=== PATIENT | female | born 1930 | race Caucasian/White ===

== ENCOUNTER → 2017-06-08 | Outpatient (CLI) | payer MEDICARE, OTHER ==
[~2017-06-08] MED LIST: ABAC300; ALEN70 PO; AMLO10 PO; AMLO5; AMLO5 PO; Amlodipine Bes2.5 MG; Bystolic5 MG PO; CEPH500 PO; CLON.3TP TOP; HYDCHL12.5; HYDCHL25 PO; HYDR1TAB94 PO; HYDRA25 PO; LEVSOD50 PO; LEVSOD88 PO; MICARDIS; OXYC5 PO; SIMV10 PO; TELM20 PO; TELM40 PO; WARF1 PO; WARF2 PO; WARF3 PO
== END ==
LOC: LAB SHORT 15:25
DX: R41.3 Other amnesia (principal)
CPT/HCPCS: 87086